=== PATIENT | female | born 1940 | race Caucasian/White ===

== ENCOUNTER → 2016-10-02 | Day surgery (SDC) | payer OTHER ==
[~2016-10-02] VITALS: Ht 157.5 cm; Wt 59.0 kg
[~2016-10-02] MED LIST: ATOR10TA52 PO; OMEP20CA5 PO; SODIUM CHLORIDE LOCK 10 ML ONE; diphenhdrAMINE HCL 50 MG/1 ML VL ONE
[2016-10-02] MEDS: MIDAZOLAM HCL 5 MG/ML-1ML VIAL ONE ×3 (09:51→09:57)
[2016-10-02] MEDS: fentaNYL CITRATE 100 MCG/2 ML VL ONE ×3 (09:51→09:57)
[2016-10-02 10:45] VITALS: BP 155/87
== END | disposition home or self-care (01) ==
LOC: GI 08:42
PROVIDERS: ATTEND Internal Medicine Gastroenterology
DX: Z12.11 Encounter for screening for malignant neoplasm of colon (principal); K57.30 Diverticulosis of large intestine without perforation or abscess without bleeding; K64.8 Other hemorrhoids
CPT/HCPCS: 45378; J2250